=== PATIENT | male | born 1985 | race Caucasian/White ===

== ENCOUNTER 2017-04-05 14:38 | Emergency (ER) | payer SELFPAY ==
[2017-04-05 15:48] VITALS: BP 135/96; PULSE 95; RESP 18; O2SAT 99
[2017-04-05 16:40] VITALS: BP 135/96; PULSE 95; RESP 18; O2SAT 99
--- NOTE | 2017-04-05 16:46 | PD ---
HPI Chief Complaint: Psychiatric Symptoms Time Seen by Provider: 16:43 Travel History International Travel<30 days: No Contact w/Intl Traveler<30days: No Traveled to known affect area: No History of Present Illness HPI 31-year-old male that presents to the ED for evaluation of psychiatric evaluation. Patient was seen and Arroyo acted at a different facility. Patient apparently had an overdose and was admitted to the ICU for observation. Patient was Arroyo acted by the physician at the time. Patient comes here for evaluation of the Arroyo act. Patient has been medically clear at different facility. He voices no complaints and states that he did not overdose. He minimizes his symptoms. He denies any depression or suicidal ideation. Per ED nurse report apparently family was concerned about overdose because he has had this before. He states that he takes citalopram for sleep and anxiety. No other medical problems reported. No back or neck pain. No other injuries reported. No other medical issues at this time. PFSH Past Medical History Anxiety: Yes Social History Alcohol Use: No Tobacco Use: No Substance Use: No Review of Systems Except as stated in HPI: all other systems reviewed are Neg Physical Exam Narrative GENERAL: SKIN: Warm and dry. HEAD: Atraumatic. Normocephalic. EYES: Pupils equal and round. No scleral icterus. No injection or drainage. ENT: No nasal bleeding or discharge. Mucous membranes pink and moist. Tongue is midline. No uvula deviation. NECK: Trachea midline. No JVD. CARDIOVASCULAR: Regular rate and rhythm. No murmurs, S3, S4. RESPIRATORY: No accessory muscle use. Clear to auscultation. Breath sounds equal bilaterally. GASTROINTESTINAL: Abdomen soft, non-tender, nondistended. Hepatic and splenic margins not palpable. MUSCULOSKELETAL: Extremities without clubbing, cyanosis, or edema. No obvious deformities. Full range of motion of the upper and lower extremities bilaterally. 2+ pulses bilaterally. NEUROLOGICAL: Awake and alert. No obvious cranial nerve deficits. Motor grossly within normal limits. Five out of 5 muscle strength in the arms and legs. Normal speech. PSYCHIATRIC: Appropriate mood and affect; insight and judgment normal. Data Data Last Documented VS Vital Signs Date Time Temp Pulse Resp B/P Pulse Ox O2 Delivery O2 Flow Rate FiO2 04/05/17 16:40 95 18 135/96 99 Room Air Orders Diet Regular Basic (04/05/17 Dinner) Psych Screen (04/05/17 16:38) MDM Medical Decision Making Medical Screen Exam Complete: Yes Emergency Medical Condition: Yes Medical Record Reviewed: Yes Differential Diagnosis Depression versus suicidal ideation versus anxiety versus adjustment disorder versus mood disorder versus bipolar disorder versus schizophrenia versus paranoid disorder versus psychosis versus substance abuse versus alcohol abuse versus alcohol induced psychosis versus homicidality addition versus cutting versus personality disorder Narrative Course 31-year-old male that presents to the ED for evaluation of psych. Patient was properly examined and was found to have signs and symptoms very consistent with psychiatric illness. No sign of acute medical distress. Patient was a vertically a different facility and labs were done at the facility. I do not see anything abnormal on the labs. Patient will be medically clear. Okay to be seen by psych. Mental health screening was discussed with the patient. Diagnosis Primary Impression: Mood disorder Dinesh Contreras Apr 05, 2017 16:46
[2017-04-05] MEDS ORDERED: CITA40TA4 PO (21:27)
[2017-04-05 22:09] VITALS: BP 113/71; PULSE 72; RESP 18; TEMP 97.6; O2SAT 99
[2017-04-06 02:00] VITALS: BP 123/61; PULSE 56; RESP 20; O2SAT 99
== END 2017-04-06 04:45 ==
LOC: NEPJ 14:38
DX: F39 Unspecified mood [affective] disorder (principal); F41.9 Anxiety disorder, unspecified
CPT/HCPCS: 99284